=== PATIENT | female | born 1940 | race Caucasian/White ===

== ENCOUNTER 2018-09-24 07:06 | Observation (INO) | payer OTHER, MEDICARE ==
--- NOTE | 2018-09-18 14:32 | GHP ---
DATE OF ADMISSION: 09/24/2018 She will be an a.m. admission for surgery on September 24, 2018. PROBLEM: Left knee arthritis. HISTORY OF PRESENT ILLNESS: The patient is an 78-year-old woman admitted for a left total knee arthr oplasty. I did arthroscopic partial medial meniscectomy on her left knee 6 or 8 years ago. She is n ow having persistent and progressive medial joint line pain. She has tried ibuprofen. She has had t o stop exercising because it was aggravating the pain in her knee. PAST MEDICAL HISTORY: She is treated for hypertension, elevated cholesterol, and GERD. No history o f heart disease, stents, DVT, hepatitis, or MRSA staph infections, sleep apnea, or hereditary bleedin g problems. CURRENT MEDICATIONS: Losartan 50 mg per day, metoprolol 25 mg per day, ranitidine 150 mg per day, ro suvastatin 10 mg per day. ALLERGIES: Drug allergy: Codeine caused nausea. Metal allergy: None. Latex allergy: None. SOCIAL HISTORY: The patient is . She is retired. She does not smoke cigarettes and occasion ally drinks alcohol. FAMILY HISTORY: Positive for cancer and diabetes. PHYSICAL EXAMINATION: GENERAL: She is an alert, healthy-appearing elderly woman. VITAL SIGNS: Hei ght 5 feet 5 inches. Weight 172 pounds. BMI 28.6. HEENT: Eyes: Conjunctivae and sclerae are magaly r. Pupils are round and reactive. Mouth: Good oral hygiene. No loose teeth. CHEST: Clear. HEAR T: Regular rhythm. No murmurs. EXTREMITIES: Pertinent findings are limited to her left knee. She has a small effusion. Full extension 120 degrees of flexion. She is tender on the medial joint jose angel e. Her ligaments are stable. Mild patellofemoral crepitation with active knee extension. IMAGING: Her films show advanced medial compartment degenerative arthritis in the left knee. She is [id number] in the medial compartment. Varus alignment is present. IMPRESSION ON ADMISSION: 1. Left knee advanced medial compartment degenerative arthritis. Status post arthroscopic surgery. 2. Treatment for hypertension. 3. Treatment for elevated cholesterol. 4. Treatment for gastroesophageal reflux disease. PLAN: She will undergo a left total knee arthroplasty. The surgery has been described to her, inclu ding the risks, complications, expectations, and recovery time. I have stressed the importance of po stoperative physical therapy. I have advised her that a small percentage of people do not get a good result with a total knee replacement. All her questions have been answered, and she consents to selam johnston. Copy requested to: KYREE Leon [facility] /[id number]/MODL
[~2018-09-24 07:06] MED LIST: POVIDONE-IODINE 20 ML in SODIUM CL IRRIG SOLUTION 500 ML IRR ONE; ROPIVACAINE 0.2% 80 MG, EPINEPHrine 0.2 MG, KETOROLAC TROMETHAMINE 30 MG in SYRINGE 0 ML IU ONE; TRANEXAMIC ACID 1,000 MG in NS 100 ML IV ONE; TRANEXAMIC ACID 3,000 MG in NS (SYRINGE) 50 ML IRR ONE
[2018-09-24] MEDS ORDERED: LIDOCAINE 1% 2 ML INJ ONE (07:18)
[2018-09-24] MEDS ORDERED: TRANEXAMIC ACID 3,000 MG/50 ML BAG IRR ONE (07:34)
[2018-09-24] MEDS ORDERED: VANCOMYCIN 1 GM VIAL ONE (07:35)
[2018-09-24] MEDS ORDERED: ceFAZolin 1 GM/5 ML SYR ONE (07:36)
[2018-09-24] MEDS ORDERED: FAMOTIDINE 20 MG TAB PO ONE (07:40)
[2018-09-24] MEDS ORDERED: LR 1,000 ML IV ONE (07:40)
[2018-09-24] MEDS ORDERED: LIDOCAINE 1% 2 ML INJ ID PRN (07:40)
[2018-09-24] MEDS ORDERED: ACETAMINOPHEN 325 MG TAB PO ONE (07:40)
[2018-09-24] MEDS ORDERED: GABAPENTIN 300 MG CAP PO ONE (07:40)
[2018-09-24] MEDS ORDERED: ONDANSETRON 4 MG/2 ML VIAL IVP ONE (07:40)
[2018-09-24] MEDS ORDERED: ceFAZolin 2 GM/DEXTROSE 100 ML IV ONE (07:40)
[2018-09-24] MEDS ORDERED: DEXAMETHASONE 4 MG/ML VIAL IVP ONE (07:40)
[2018-09-24] MEDS ORDERED: MIDAZOLAM 2 MG/2 ML VIAL IVP ONE (08:20)
[2018-09-24] MEDS ORDERED: PROPOFOL/EMULSION 500 MG/50 ML BOTTLE IV ONE (08:40)
[2018-09-24] MEDS ORDERED: fentaNYL 100 MCG/2 ML INJ ONE (08:40)
--- NOTE | 2018-09-24 08:59 | PDHPUP ---
History & Physical Update H&P update statement: This history and physical update is based on an assessment of the patient which was completed after admission or registration (within 24 hours), but prior to the surgery/procedure. H&P update: H&P reviewed & patient examined
--- NOTE | 2018-09-24 10:30 | PDANEPAE ---
ANE History of Present Illness 78 year old Left TKA ANE Past Medical History - Cardiovascular History Hx Hypertension: Yes Hx Arrhythmias: No Hx Chest Pain: No Hx Coronary Artery / Peripheral Vascular Disease: No Hx CHF / Valvular Disease: No Hx Palpitations: No - Pulmonary History Hx COPD: No Hx Asthma/Reactive Airway Disease: No Hx Recent Upper Respiratory Infection: No Hx Oxygen in Use at Home: No Hx Sleep Apnea: No Sleep Apnea Screening Result - Last Documented: Negative - Neurologic History Hx Cerebrovascular Accident: No Hx Seizures: No Hx Dementia: No - Endocrine History Hx Diabetes: No - Renal History Hx Renal Disorders: No - Liver History Hx Hepatic Disorders: No - Neurological & Psychiatric Hx Hx Neurological and Psychiatric Disorders: No - Cancer History Hx Cancer: Yes Cancer History Comment: MULTIPLE SKIN CA - Congenital Disorder History Hx Congenital Disorders: No - GI History Hx Gastrointestinal Disorders: Yes Gastrointestinal History Comment: REFLUX - Other Health History Other Health History: NONE - Chronic Pain History Chronic Pain: No - Surgical History Prior Surgeries: COLONOSCOPIES. BILAT MENISCUS REPAIRS ANE Review of Systems Review of systems is: negative Review of Systems: - Exercise capacity METS (RN): 4 METS ANE Patient History - Allergies Allergies/Adverse Reactions: codeine Allergy (Verified 09/04/18 13:38) Vomiting - Home Medications Home medications: home medication list seen and reviewed Home Medications: Aspirin [Aspirin 81mg (*)] 81 mg PO DAILY 09/04/18 [Last Taken 09/17/18] Calcium Carbonate [Oyster Shell Calcium 500 mg (*)] 500 mg PO DAILY 09/04/18 [ Last Taken 09/17/18] Cholecalciferol Vit D3 [Vitamin D3 (*)] 1,000 units PO DAILY 09/04/18 [Last Taken 09/17/18] Cyanocobalamin [Vitamin B12 (*)] 1,000 mcg PO DAILY 09/04/18 [Last Taken ] Herbals/Supplements -Info Only 1 ea PO DAILY 09/04/18 [Last Taken Unknown] Losartan Potassium [Cozaar 50 mg (*)] 50 mg PO DAILY 09/04/18 [Last Taken ] Metoprolol Tartrate [Lopressor 25 mg (*)] 12.5 mg PO BID 09/04/18 [Last Taken ] Multivitamins [Multivitamin (*)] 1 each PO DAILY 09/04/18 [Last Taken 09/17/18] Ranitidine HCl [Zantac] 150 mg PO BID 09/04/18 [Last Taken 09/24/18] Rosuvastatin Calcium [Crestor 10mg (RX)] 10 mg PO DAILY 09/04/18 [Last Taken 10/11] - NPO status NPO Since - Liquids (Date): 09/24/18 NPO Since - Liquids (Time): 05:59 NPO Since - Solids (Date): 09/23/18 NPO Since - Solids (Time): 21:00 - Anes Hx Anes Hx: no prior problems - Smoking Hx Smoking Status: Never smoked - Alcohol Use Alcohol Use: Rarely - Family Anes Hx Family Hx Anesthesia Complications: NONE ANE Labs/Vital Signs - Vital Signs Blood Pressure: 151/97 Heart Rate: 62 Respiratory Rate: 18 O2 Sat (%): 96 Height: 165.1 cm Weight: 78.245 kg ANE Physical Exam - Airway Neck exam: FROM Mallampati Score: Class 2 Mouth exam: normal dental/mouth exam - Pulmonary Pulmonary: no respiratory distress - Cardiovascular Cardiovascular: regular rate and rhythym - ASA Status ASA Status: II ANE Anesthesia Plan Anesthesia Plan: spinal Regional Anesthesia: continuous NB, adductor canal FNB
--- NOTE | 2018-09-24 10:42 | POSTOPPROG ---
Post Op Note Date of Operation: 09/24/18 Surgeon: Eric Littlejohn [employer] Operator: Regina Anesthesiologist: Chandler robles Post-op Diagnosis: Left knee severe degenerative arthritis. Procedure: Left total knee arthroplasty Inf/Abcess present in the surg proc area at time of surgery?: No EBL: 50-100 (Adductor canal block with indwelling catheter in PACU.)
[2018-09-24] MEDS ORDERED: POLYETHYLENE GLYCOL 3350 17 GM PKT PO PRN (11:00)
[2018-09-24] MEDS ORDERED: CYCLOBENZAPRINE 10 MG TAB PO PRN (11:00)
[2018-09-24] MEDS ORDERED: METOCLOPRAMIDE 10 MG/2 ML VIAL IVP PRN (11:00)
[2018-09-24] MEDS ORDERED: NS 500 ML IV PRN (11:00)
[2018-09-24] MEDS ORDERED: PROMETHAZINE HCL 25 MG SUPPR PR PRN (11:00)
[2018-09-24] MEDS ORDERED: LACTULOSE 20 GM/30 ML UDCUP PO PRN (11:00)
[2018-09-24] MEDS ORDERED: BISACODYL 10 MG SUPP PR PRN (11:00)
[2018-09-24] MEDS ORDERED: oxyCODONE IR 5 MG TAB PO PRN (11:00)
[2018-09-24] MEDS ORDERED: MAGNESIUM HYDROXIDE 30 ML UDCUP PO PRN (11:00)
[2018-09-24] MEDS ORDERED: diphenhydrAMINE 25 MG CAP PO PRN (11:00)
[2018-09-24] MEDS ORDERED: TEMAZEPAM 15 MG CAP PO PRN (11:00)
[2018-09-24] MEDS ORDERED: ONDANSETRON 4 MG/2 ML VIAL IVP PRN ×2 (11:00→11:18)
[2018-09-24] MEDS ORDERED: ONDANSETRON DISINTEGRATING 4 MG TAB PO PRN (11:00)
[2018-09-24] MEDS ORDERED: LR 1,000 ML IV SCH (11:00)
[2018-09-24] MEDS ORDERED: PROMETHAZINE HCL 25 MG/ML INJ IVP PRN ×2 (11:00→11:18)
[2018-09-24] MEDS ORDERED: traMADol 50 MG TAB PO PRN (11:00)
[2018-09-24] MEDS ORDERED: DIPHENOXYLATE/ATROPINE LOMOTIL 1 TAB PO PRN (11:00)
[2018-09-24] MEDS ORDERED: fentaNYL 100 MCG/2 ML INJ IVP PRN (11:18)
[2018-09-24] MEDS ORDERED: NALOXONE HCL 0.4 MG/ML INJ IVP PRN (11:18)
--- NOTE | 2018-09-24 11:18 | POSTANESTH ---
Post Anesthetic Evaluation Cardiovascular Status: Normal, Stable Respiratory Status: Normal, Stable Level of Consciousness/Mental Status: Can Participate in Eval Pain Control: Adequate, Prn Tx Ordered Nausea/Vomiting Control: Adequate, Prn Tx Ordered Complications Possibly Related to Anesthesia: None Noted
--- NOTE | 2018-09-24 11:22 | GOP ---
DATE OF OPERATION: 09/24/2018 SURGEON: Eric Littlejohn MD MONORAIL HELPER: Cornelius Todd and Ulisses Mcguire. ANESTHESIA: Combination of Marcaine, spinal, IV sedation, and adductor canal block. ANESTHESIOLOGIST: Glenn García MD. PREOPERATIVE DIAGNOSIS: Left knee severe degenerative arthritis with varus deformity. POSTOPERATIVE DIAGNOSIS: Left knee severe degenerative arthritis with varus deformity. PROCEDURE PERFORMED: Left total knee arthroplasty, cemented, Pelaez and Nephew Journey II, posterior stabilized. FINDINGS: DESCRIPTION OF PROCEDURE: The patient was given 2 g of IV Ancef preoperatively. She also received 1 000 mg of IV tranexamic acid preoperatively. She was placed on the operating room table and given sp inal anesthesia with Marcaine by Dr. Shaji García. She was then placed supine and given IV sedation. A Santos catheter was not used. A SHAJI stocking and SCD were applied to the nonoperative leg. Her left lower extremity was prepped with ChloraPrep from the upper thigh tourniquet to the tips of the toes. It was draped free using sterile sheets, stockinette, and Ioban plastic adhesive drape. Her lower l eg was wrapped with compressive Coban. The leg was exsanguinated with elevation and a 6-inch juan c sive wrap, and the pneumatic tourniquet was inflated to 250 mmHg. The World Health Organization time-out was performed to verify the correct patient identity and the c orrect surgical side and site. The [place] time-out was also performed. The Accurate Groupayo leg holding device was sterilely attached to the operating room table and used throughout the procedure to help position the knee. A straight midline incision was made centered on the patell a. Subcutaneous tissues were sharply divided, and hemostasis was obtained using electrocautery. A m edial subcutaneous flap was developed, and the capsule and synovium were opened in medial parapatella r fashion. Extensive degenerative changes were present in her medial compartment and patellofemoral joint. The medial capsule and periosteum were elevated off the rim of the medial tibial plateau all the way around to the posteromedial corner. Her medial collateral ligament was released enough to ba diaz the medial side of the knee. In order to improve exposure, her patella was prepared first. The original thickness of the patella was measured. Peripheral osteophytes were removed. I cut a flat surface on the back of the patella. It was sized for a 38 mm round resurfacing component. I removed enough bone from the patella such that the remaining bone plus the thickness of the patellar component recreated the original thickness of the patella. The composite thickness was 23 mm. The intramedullary alignment guide system was used to set up the distal femoral cut. The distal femu r was cut in 6 degrees of valgus. Because of a slight preoperative flexion contracture, and because I was using a posterior stabilized femoral component, I made a +2 mm cut on the distal femur. The si zing jig was used to determine proper femoral sizing. I shifted the #4 jig anteriorly 1 mm in order to accommodate the size 4 component without notching the anterior cortex. The 5-in-1 cutting block w as applied, and the anterior and posterior condylar cuts and chamfer cuts were made. The final jig w as used to remove the central portion of the distal femur to accommodate the posterior stabilized fem oral component. I was careful to determine proper rotation by referencing off [place] line and ot er bony landmarks. Each cut was checked for accuracy. The femur was sized for a size [address] abilized component. The trial component was tapped securely into place and was a good fit. Next, the tibia was prepared. The proximal tibial cut was made using the extramedullary alignment gu raf system. The cut was made in a few degrees of posterior slope. I was careful to achieve proper v arus valgus alignment and proper rotation. The posterior compartment was cleared of meniscal remnant s. Osteophytes were removed from the back of her femoral condyles. I checked the flexion and extens ion gaps, and they were equal, balanced, and rectangular. The tibia was sized for a size 4 component . With the trial components in place, I selected a 9 mm polyethylene posterior stabilized tibial ins ert. The knee came to full extension and flexed to 125 degrees. Her collateral ligaments were stabl e and balanced in 90 degrees of flexion and full extension. The trial patellar button was applied, a nd tracking was checked. Tracking was excellent without digital pressure. 40 mL of the joint anesthetic cocktail was injected into the posterior capsule, the quadriceps muscle , and tendon areas, and the subcutaneous tissues along the skin edges. The surfaces were prepared for cementing. They were carefully cleaned with the pulsating lavage irri gation and thoroughly dried. The CarboJet device was used to blow dry the cancellous surfaces. A do uble batch of high viscosity methylmethacrylate cement with 2 g of powdered vancomycin added was mixe d. While it was still in a doughy state, all 3 components were cemented in place. Excess cement was removed before it hardened. The 9 mm trial insert was re-tried and was the proper thickness. The actual component was inserted a nd locked into place. The knee was thoroughly irrigated 1 final time with a dilute Betadine solution . The tourniquet was deflated. The total tourniquet time was 45 minutes. 50 cc of tranexamic acid bina ution was irrigated into the wound and left in place. The wound was packed with a lap sponge and wra pped with a compressive wrap for several minutes. The vastus medialis portion of the extensor mechanism was repaired with several interrupted figure-of -eight #2 FiberWire sutures. The capsule and synovium were closed first with multiple interrupted fi [id number] 0 PDS sutures, followed by a running #2 barbed Ethicon Stratafix PDO suture. The subcu taneous tissues were closed with a running 0 barbed Ethicon Stratafix Monoderm suture. The skin was closed with a running 3-0 barbed Ethicon Stratafix Monoderm subcuticular suture. The skin was sealed with half-inch Steri-Strips. The wound was covered with a large Mepilex waterproof dressing, and th e knee was wrapped with a Kerlix and a 6-inch compressive wrap. A long-leg SHAJI stocking and SCD were applied, followed by the cooling device. She wore a stocking and SCD on the opposite leg during the procedure. The sacral Mepilex dressing was applied. I used a size 4 Pelaez and Nephew cemented Oxinium posterior stabilized femoral component, a size 4 ce mented tibial base plate, a 9 mm posterior stabilized tibial insert, and a 38 mm cemented round all-p olyethylene resurfacing patellar component. The estimated blood loss following deflation of the tourniquet was about 100 cc. The sponge and needle count were correct on 2 occasions. She was awakened from anesthesia, transferred to her gurney, and taken to PACU in satisfactory condit ion. There were no recognized intraoperative complications. In the PACU, for additional postoperati ve pain control, Dr. García performed an adductor canal block with an indwelling catheter. Cornelius Todd and Ulisses Mcguire acted as surgical assistants. Their assistance was a medical necess ity for safe completion of the procedure. Copy requested to: Wandy Bernardo [facility] Ulisses Mcguire [facility], [place] Cornelius Todd [facility] /[id number]/MODL
[2018-09-24] MEDS: KETOROLAC 15 MG/1 ML SDV IVP SCH ×2 (12:24→18:19)
[2018-09-24] MEDS: ACETAMINOPHEN 325 MG TAB PO SCH ×2 (12:28→18:19)
[2018-09-24] MEDS: ceFAZolin 2 GM/DEXTROSE 100 ML IV SCH (17:10)
[2018-09-24] MEDS ORDERED: NON-FORMULARY NEW DRUG (Ranitidine Hcl [Zantac] 150 MG) PO SCH (21:00)
[2018-09-24] MEDS: FAMOTIDINE 20 MG TAB PO SCH (22:11)
[2018-09-24] MEDS: SENNOSIDES/DOCUSATE SODIUM TAB PO SCH (22:11)
[2018-09-24] MEDS: ASPIRIN 325 MG TAB PO SCH (22:12)
[2018-09-24] MEDS: METOPROLOL TARTRATE 25 MG TAB PO SCH (22:14)
[2018-09-25] MEDS: KETOROLAC 15 MG/1 ML SDV IVP SCH ×2 (00:56→05:59)
[2018-09-25] MEDS: ACETAMINOPHEN 325 MG TAB PO SCH ×3 (00:57→12:05)
[2018-09-25] MEDS: ceFAZolin 2 GM/DEXTROSE 100 ML IV SCH (00:57)
[2018-09-25] MEDS ORDERED: ROPIVACAINE HCL 150 MG/30 ML INJ ONE (07:19)
--- NOTE | 2018-09-25 07:27 | SOAPPROG ---
SOAP Progress Note Assessment/Plan: Assessment: Afebrile. Awake and alert. Very little pain so far. Postop films look good. H&H are good. Plan: Up with PT today. Standing alignment film. Discharge later today. She will go to outpatient physical therapy in [place]. 09/25/18 07:26 Objective: Vital Signs Temp Pulse Resp BP Pulse Ox 36.7 C 56 L 17 116/74 92 09/25/18 04:00 09/25/18 04:00 09/25/18 04:00 09/25/18 04:00 09/25/18 04:00 Laboratory Results 09/25/18 04:50 09/24/18 09/25/18 09/26/18 05:59 05:59 05:59 Intake Total 1430 Output Total 1800 Balance -370 ICD10 Worksheet Patient Problems: Problems Problem Status Onset Osteoarthritis of left knee Acute
--- NOTE | 2018-09-25 07:41 | GDS ---
ADMISSION DIAGNOSIS: Left knee severe degenerative arthritis. DISCHARGE DIAGNOSIS: Left knee severe degenerative arthritis. OPERATION PERFORMED: 09/24/18, left total knee arthroplasty. POSTOPERATIVE COMPLICATIONS: None. CONDITION ON DISCHARGE: Improved. DESCRIPTION OF HOSPITAL COURSE: The patient was admitted to the hospital on the morning of surgery. Her admission CBC and electrolytes were normal. BUN 31, creatinine 0.8. The same day, under a comb ination of Marcaine, spinal, IV sedation, and adductor canal block, she underwent a left total knee a rthroplasty. Postoperatively, she was treated with multimodal DVT prophylaxis including aspirin. Jan medrano was seen by Physical Therapy and made good progress with ambulation, stairs, and knee range of vamshi on. By the time of discharge, she was afebrile and was independent walking. DISPOSITION: The patient discharged to her home. She will go to outpatient physical therapy in [facility] next week. She may progress to full weightbearing on the left as tolerated. Continue aspirin 3 25 mg p.o. daily for 21 days. She has prescriptions for oxycodone, tramadol, and Celebrex for pain. I will see her back in the office on October 06, 2018. If there are any problems, she is to call me at the office. Copy requested to: Wandy Bernardo [facility] /[id number]/MODL
[2018-09-25] MEDS ORDERED: FERROUS SULFATE 325 MG TAB PO SCH (08:00)
[2018-09-25] MEDS ORDERED: LIPID EMULSION 20% 100 ML IV PRN (08:01)
--- NOTE | 2018-09-25 08:21 | ASMTDCNOTE ---
Case Management Discharge Discharge Order Complete? Answers: Yes Discharge Comments Notes: Pt being discharged independent. No needs identified. Date Signed: 09/25/2018 08:20 AM Electronically Signed By:TAZ Shetty
--- NOTE | 2018-09-25 08:23 | PDPAINCON ---
Pain Management Consultation Patient referred by : Eron - Subjective Pain is: low, well controlled Side effects include: drowsy, itchiness Activity: able to ambulate, participating in PT - Objective Technique: continuous peripheral nerve block Continuous infusion: ropivicaine (0.5%) Catheter site: clean, dry, intact, no erythema/edema/exudate Sensory and motor exam: consistent with block - Assessment/Plan Assessment/Plan: pain well-controlled, continue current mgmt Additional comments: POD 1 s/p TKA with AC catheter in place. Re-dosed with ropivacaine 0.5% 25ml and catheter removed without complication. D/c home today.
--- NOTE | 2018-09-25 08:25 | ASDISCHSUM ---
Discharge Information Plan Status:Home with No Needs Medically Cleared to Leave:09/24/2018 Discharge Date:09/24/2018 CM D/C Disposition: ADT D/C Disposition:Home, Routine, Self-Care Projected Discharge Date:09/25/2018 12:00 AM Transportation at D/C: Discharge Delay Reason: Follow-Up Date:09/25/2018 12:00 AM Discharge Slot: Final Diagnosis: Placement Information Patient Contact Information Contact Name:JOSEPH Relationship: Address:[address] City:[place] Alternate Phone: [facility]/Zip Code:[place] [address] Email: Financial Information Financial Class:Medicare Primary Plan Desc:MEDICARE INPATIENT Primary Plan Number:[id number] Secondary Plan Desc:SAUL/KESHIA SUPPLEMENT Secondary Plan Number:[id number] Assessment Information Case Management Discharge Plan Note Case Management Discharge Discharge Order Complete? Answers: Yes Discharge Comments Notes: Pt being discharged independent. No needs identified. Date Signed: 09/25/2018 08:20 AM Electronically Signed By:TAZ Shetty LACE LACE Length of stay for Answers: 1 day current admission Acuity / Level of Answers: No Care: Did the patient have an inpatient admission? Comorbidities - select Answers: Other Notes: HTN, Gerd, Hypertension all that apply # of Emergency department Answers: 0 visits in the last 6 months Score: 2 Date Signed: 09/25/2018 08:24 AM Electronically Signed By:TAZ Shetty Intervention Information
[2018-09-25] MEDS: FAMOTIDINE 20 MG TAB PO SCH (08:57)
[2018-09-25] MEDS: METOPROLOL TARTRATE 25 MG TAB PO SCH (08:58)
[2018-09-25] MEDS: ASPIRIN 325 MG TAB PO SCH (08:59)
[2018-09-25] MEDS: SENNOSIDES/DOCUSATE SODIUM TAB PO SCH (08:59)
[2018-09-25 09:00] VITALS: BP 141/74
[2018-09-25] MEDS ORDERED: LOSARTAN POTASSIUM 50 MG TAB PO SCH (09:00)
[2018-09-25] MEDS ORDERED: ROSUVASTATIN CALCIUM 10 MG TAB PO SCH (09:00)
== END 2018-09-25 12:18 | disposition home or self-care (01) ==
LOC: F3N 07:06 → INTOOBSV 07:06 → F3N 11:53
PROVIDERS: ADMIT Orthopaedic Surgery; ATTEND Orthopaedic Surgery
PROC: 0SRD069 Replacement of Left Knee Joint with Oxidized Zirconium on Polyethylene Synthetic Substitute, Cemented, Open Approach (ICD-10-PCS; principal; 2018-09-24 09:00)
DX: M17.12 Unilateral primary osteoarthritis, left knee (principal); I10 Essential (primary) hypertension; K21.9 Gastro-esophageal reflux disease without esophagitis
CPT/HCPCS: 27447; 73560; 77073; 88311; 97110; 97116; 97161; C1713; C1776; J0171; J0690; J1100; J1885; J2250; J2405; J2704; J2795; J3370; J3010

== ENCOUNTER 2018-11-05 11:57 | Day surgery (SDC) | payer OTHER, MEDICARE ==
--- NOTE | 2018-11-03 17:38 | GHP ---
[f rep st] PREOP HISTORY AND PHYSICAL DATE OF ADMISSION: 11/05/2018 PROBLEM: Status post left total knee arthroplasty with postoperative stiffness. HISTORY OF PRESENT ILLNESS: The patient is an 78-year-old woman who underwent a left total knee arth roplasty on 09/24/2018. She has only been able to achieve 60-70 degrees of knee flexion. She is adm itted for closed manipulation. PAST MEDICAL HISTORY: She is treated for hypertension, elevated cholesterol, and GERD. No history o f heart disease or stents. CURRENT MEDICATIONS: Losartan 50 mg per day. Metoprolol 25 mg per day. Ranitidine 150 mg per day. Rosuvastatin 10 mg per day. DRUG ALLERGIES: Codeine causes nausea. Latex allergy, none. PHYSICAL EXAMINATION: The rest of her history and her physical examination are unchanged from her dictation. HEART: Regular rhythm. No murmurs. LUNGS: Clear. EXTREMITIES: Exam of her knee shows full extension and about 60-70 degrees of flexion. Her collateral ligaments are stable. Moderate swelling. Her surgical wound is healed. IMPRESSION ON ADMISSION: 1. Status post left total knee arthroplasty with failure to regain motion. She will undergo a close d manipulation. 2. Treatment for hypertension. 3. Treatment for elevated cholesterol. 4. Treatment for gastroesophageal reflux disease. PLAN: She will undergo closed manipulation of her left total knee arthroplasty. The surgery has bee n described to her including the risks, complications, expectations, and recovery time. I have stres sed the importance of followup physical therapy. I have advised her there is a small chance of fract ure or rupture of tendon or ligament. All her questions have been answered, and she consents to surg ciera. Copy requested to: Wandy Bernardo NP /[id number]/MODL
[2018-11-05] MEDS ORDERED: ACETAMINOPHEN 500 MG TAB PO ONE (12:22)
[2018-11-05] MEDS ORDERED: LR 1,000 ML IV SCH (12:22)
[2018-11-05] MEDS ORDERED: PREGABALIN 150 MG CAP PO ONE (12:22)
[2018-11-05] MEDS ORDERED: LR 1,000 ML IV ONE (13:11)
[2018-11-05] MEDS ORDERED: LIDOCAINE 1% 2 ML INJ ID PRN (13:11)
--- NOTE | 2018-11-05 13:25 | PDANEPAE ---
ANE History of Present Illness here for Knee MELANIE ANE Past Medical History - Cardiovascular History Hx Hypertension: Yes Hx Arrhythmias: No Hx Chest Pain: No Hx Coronary Artery / Peripheral Vascular Disease: No Hx CHF / Valvular Disease: No Hx Palpitations: No - Pulmonary History Hx COPD: No Hx Asthma/Reactive Airway Disease: No Hx Recent Upper Respiratory Infection: No Hx Oxygen in Use at Home: No Hx Sleep Apnea: No Sleep Apnea Screening Result - Last Documented: Negative - Neurologic History Hx Cerebrovascular Accident: No Hx Seizures: No Hx Dementia: No - Endocrine History Hx Diabetes: No - Renal History Hx Renal Disorders: No - Liver History Hx Hepatic Disorders: No - Neurological & Psychiatric Hx Hx Neurological and Psychiatric Disorders: No - Cancer History Hx Cancer: Yes Cancer History Comment: MULTIPLE SKIN CA - Congenital Disorder History Hx Congenital Disorders: No - GI History Hx Gastrointestinal Disorders: Yes Gastrointestinal History Comment: REFLUX - Other Health History Other Health History: WEARS GLASSES. WEARS BILATERAL HEARING AIDES - Chronic Pain History Chronic Pain: Yes (LEFT KNEE) - Surgical History Prior Surgeries: 09/24/18 LEFT TKA WITH KVNG. COLONOSCOPIES. BILAT MENISCUS REPAIRS ANE Review of Systems Review of Systems: - Exercise capacity METS (RN): 4 METS ANE Patient History - Allergies Allergies/Adverse Reactions: codeine Allergy (Verified 11/05/18 12:26) Vomiting - Home Medications Home Medications: Calcium Carbonate [Oyster Shell Calcium 500 mg (*)] 500 mg PO HS 09/04/18 [Last Taken 11/02/18] Cholecalciferol Vit D3 [Vitamin D3 (*)] 1,000 units PO HS 09/04/18 [Last Taken 11/02/18] Cyanocobalamin [Vitamin B12 (*)] 1,000 mcg PO HS 09/04/18 [Last Taken 11/02/18] Herbals/Supplements -Info Only 1 ea PO DAILY 09/04/18 [Last Taken 11/02/18] Losartan Potassium [Cozaar 50 mg (*)] 50 mg PO DAILY 09/04/18 [Last Taken ] Metoprolol Tartrate [Lopressor 25 mg (*)] 12.5 mg PO BID 09/04/18 [Last Taken ] Multivitamins [Multivitamin (*)] 1 each PO DAILY 09/04/18 [Last Taken 11/02/18] Rosuvastatin Calcium [Crestor] 10 mg PO DAILY 09/04/18 [Last Taken 09/23/18] Acetaminophen [Tylenol ES 500 mg (*)] 1,000 mg PO Q6 PRN 11/04/18 [Last Taken Unknown] Ascorbic Acid [Vitamin C 500 mg (*)] 500 mg PO HS 11/04/18 [Last Taken 11/02/18] Aspirin [Aspirin 81mg (*)] 81 mg PO HS 11/04/18 [Last Taken 11/02/18] Melatonin [Melatonin 3 MG (*)] 3 mg PO HS 11/04/18 [Last Taken Unknown] [place]-3 Fatty Acids [Fish Oil 1000 mg (*)] 1,000 mg PO DAILY 11/04/18 [Last Taken 11/02/18] Ranitidine HCl [Zantac] 150 mg PO BID 11/04/18 [Last Taken Unknown] - NPO status NPO Since - Liquids (Date): 11/05/18 NPO Since - Liquids (Time): 06:00 NPO Since - Solids (Date): 11/05/18 NPO Since - Solids (Time): 06:00 - Smoking Hx Smoking Status: Never smoked - Family Anes Hx Family Hx Anesthesia Complications: NONE ANE Labs/Vital Signs - Vital Signs Blood Pressure: 142/74 Heart Rate: 70 Respiratory Rate: 20 O2 Sat (%): 97 Height: 165.1 cm Weight: 78.245 kg
[2018-11-05] MEDS ORDERED: LIDOCAINE 1% 2 ML INJ ONE (13:28)
[2018-11-05] MEDS ORDERED: BUPIVACAINE/EPI 0.5% 30 ML SDV ONE (13:56)
--- NOTE | 2018-11-05 14:12 | PDANEPAE ---
ANE History of Present Illness here for MELANIE L knee ANE Past Medical History - Cardiovascular History Hx Hypertension: Yes Hx Arrhythmias: No Hx Chest Pain: No Hx Coronary Artery / Peripheral Vascular Disease: No Hx CHF / Valvular Disease: No Hx Palpitations: No - Pulmonary History Hx COPD: No Hx Asthma/Reactive Airway Disease: No Hx Recent Upper Respiratory Infection: No Hx Oxygen in Use at Home: No Hx Sleep Apnea: No Sleep Apnea Screening Result - Last Documented: Negative - Neurologic History Hx Cerebrovascular Accident: No Hx Seizures: No Hx Dementia: No - Endocrine History Hx Diabetes: No - Renal History Hx Renal Disorders: No - Liver History Hx Hepatic Disorders: No - Neurological & Psychiatric Hx Hx Neurological and Psychiatric Disorders: No - Cancer History Hx Cancer: Yes Cancer History Comment: MULTIPLE SKIN CA - Congenital Disorder History Hx Congenital Disorders: No - GI History Hx Gastrointestinal Disorders: Yes Gastrointestinal History Comment: REFLUX - Other Health History Other Health History: WEARS GLASSES. WEARS BILATERAL HEARING AIDES - Chronic Pain History Chronic Pain: Yes (LEFT KNEE) - Surgical History Prior Surgeries: 09/24/18 LEFT TKA WITH KVNG. COLONOSCOPIES. BILAT MENISCUS REPAIRS ANE Review of Systems Review of Systems: - Exercise capacity METS (RN): 4 METS ANE Patient History - Allergies Allergies/Adverse Reactions: codeine Allergy (Verified 11/05/18 12:26) Vomiting - Home Medications Home Medications: Calcium Carbonate [Oyster Shell Calcium 500 mg (*)] 500 mg PO HS 09/04/18 [Last Taken 11/02/18] Cholecalciferol Vit D3 [Vitamin D3 (*)] 1,000 units PO HS 09/04/18 [Last Taken 11/02/18] Cyanocobalamin [Vitamin B12 (*)] 1,000 mcg PO HS 09/04/18 [Last Taken 11/02/18] Herbals/Supplements -Info Only 1 ea PO DAILY 09/04/18 [Last Taken 11/02/18] Losartan Potassium [Cozaar 50 mg (*)] 50 mg PO DAILY 09/04/18 [Last Taken ] Metoprolol Tartrate [Lopressor 25 mg (*)] 12.5 mg PO BID 09/04/18 [Last Taken ] Multivitamins [Multivitamin (*)] 1 each PO DAILY 09/04/18 [Last Taken 11/02/18] Rosuvastatin Calcium [Crestor] 10 mg PO DAILY 09/04/18 [Last Taken 09/23/18] Acetaminophen [Tylenol ES 500 mg (*)] 1,000 mg PO Q6 PRN 11/04/18 [Last Taken Unknown] Ascorbic Acid [Vitamin C 500 mg (*)] 500 mg PO HS 11/04/18 [Last Taken 11/02/18] Aspirin [Aspirin 81mg (*)] 81 mg PO HS 11/04/18 [Last Taken 11/02/18] Melatonin [Melatonin 3 MG (*)] 3 mg PO HS 11/04/18 [Last Taken Unknown] [place]-3 Fatty Acids [Fish Oil 1000 mg (*)] 1,000 mg PO DAILY 11/04/18 [Last Taken 11/02/18] Ranitidine HCl [Zantac] 150 mg PO BID 11/04/18 [Last Taken Unknown] - NPO status NPO Since - Liquids (Date): 11/05/18 NPO Since - Liquids (Time): 06:00 NPO Since - Solids (Date): 11/05/18 NPO Since - Solids (Time): 06:00 - Smoking Hx Smoking Status: Never smoked - Family Anes Hx Family Hx Anesthesia Complications: NONE ANE Labs/Vital Signs - Vital Signs Blood Pressure: 142/74 Heart Rate: 70 Respiratory Rate: 20 O2 Sat (%): 97 Height: 165.1 cm Weight: 78.245 kg ANE Physical Exam - Airway Neck exam: FROM Mallampati Score: Class 1 Mouth exam: normal dental/mouth exam - Pulmonary Pulmonary: no respiratory distress - Cardiovascular Cardiovascular: regular rate and rhythym - ASA Status ASA Status: II ANE Anesthesia Plan Anesthesia Plan: GA with mask
[2018-11-05] MEDS ORDERED: PROPOFOL 200 MG/20 ML VIAL ONE (14:15)
[2018-11-05 15:06] VITALS: BP 139/91
--- NOTE | 2018-11-06 08:18 | GOP ---
[f rep st] OPERATIVE REPORT DATE OF OPERATION: 11/05/2018 SURGEON: Eric Littlejohn MD INSTRUCTIONAL TECHNOLOGY TEACHER: None. ANESTHESIA: General. ANESTHESIOLOGIST: Alexis Albarran MD. 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 PROCEDURE PERFORMED: Closed manipulation under general anesthesia of left total knee arthroplasty. FINDINGS: DESCRIPTION OF PROCEDURE: The patient was brought to the operating room on her gurney. A time-out w as performed to verify the correct patient identity and the correct surgical side and site. She was given general anesthesia by Dr. Albarran. When she was fully anesthetized, I manipulated her left knee . I applied a gentle flexion and posterior translation. I encountered a moderate amount of scar tis hector at about 80 degrees of flexion. However, it was quite easy to break the adhesions and flex the k nee to about 125 degrees. I checked her collateral ligaments after the manipulation and they were in tact. The knee was prepped with ChloraPrep. I injected 20 cc of 0.5% Marcaine with epinephrine. The wound was wrapped with a 6-inch compressive wrap. She was awakened from anesthesia and taken to recovery room in satisfactory condition. There were no recognized intraoperative complications. /[id number]/MODL
== END 2018-11-05 15:35 | disposition home or self-care (01) ==
LOC: F3N 11:57 → UNDOADMOB 11:57 → FSGY 11:57 → EDSTATUS 15:00 → FSGY 15:35 → UNDODISOB 15:35
PROVIDERS: ATTEND Orthopaedic Surgery
PROC: 0SSDXZZ Reposition Left Knee Joint, External Approach (ICD-10-PCS; principal; 2018-11-05 15:00)
DX: M25.662 Stiffness of left knee, not elsewhere classified (principal); M17.12 Unilateral primary osteoarthritis, left knee; I10 Essential (primary) hypertension; E78.5 Hyperlipidemia, unspecified; K21.9 Gastro-esophageal reflux disease without esophagitis; Z91.040 Latex allergy status
CPT/HCPCS: J2704